=== PATIENT | male | born 1980 | race Two or more races ===

== ENCOUNTER 2021-11-01 06:08 | Inpatient (IN) | payer MEDICAID ==
[~2021-11-01] VITALS: Ht 182.9 cm; Wt 115.0 kg
[2021-11-01 06:44] LABS: EOSINOPHILS % (AUTO) 0.4 % (1.0-6.0); HEMATOCRIT 43.7 % (41-53); HEMOGLOBIN 14.9 g/dL (13.5-17.5); LYMPHOCYTES # (AUTO) 0.9 K/uL (1.0-4.8); LYMPHOCYTES % (AUTO) 17.8 % (22.0-44.0); MEAN CORPUSCULAR HEMOGLOBIN 31.1 pg (26.0-34.0); MEAN CORPUSCULAR HGB CONC 34.2 G/dL (31.0-37.0); MEAN CORPUSCULAR VOLUME 91 fL (80-100); MONOCYTES # (AUTO) 0.5 K/uL (0.1-1.0); NEUTROPHILS # (AUTO) 3.5 K/uL (1.8-7.7); NEUTROPHILS % (AUTO) 70.8 % (40.0-70.0); PLATELET COUNT (AUTO) 344 K/uL (150-450); RED BLOOD CELL COUNT(AUTO) 4.79 MIL/uL (4.50-5.90); RED CELL DISTRIBUTION WIDTH 13.2 % (11.5-14.5)
[2021-11-01 06:53] LABS: ANION GAP 11 mmol/L (8-16); CALCIUM, TOTAL 9.1 mg/dL (8.8-10.5); CARBON DIOXIDE 21 mmol/L (22-29); CHLORIDE 98 mmol/L (98-107); CREATININE 0.88 mg/dL (0.60-1.30); GLOMERULAR FILTR. RATE CALC > 60 mL/min (>60); GLUCOSE,RANDOM 104 mg/dL (70-110); SODIUM SERUM 130 mmol/L (136-145); UREA NITROGEN, BLOOD 10 mg/dL (7-18)
[2021-11-01 07:04] LABS: D-DIMER 1.7 mg/L FEU (0.00-0.50); INR 1.1 (0.9-1.1)
[2021-11-01 07:55] LABS: ALANINE AMINOTRANSFERASE 179 U/L (12-78); ALBUMIN 2.8 g/dL (3.4-5.0); ALKALINE PHOSPHATASE 67 U/L (46-116); ASPARTATE AMINOTRANSFERASE 159 U/L (15-37); BILIRUBIN,TOTAL 0.8 mg/dL (0.1-1.0); CREATINE KINASE, TOTAL ONLY 329 U/L (39-308); LACTATE DEHYDROGENASE 538 U/L (85-227); PHOSPHORUS 3.6 mg/dL (2.5-4.9); TOTAL PROTEIN, SERUM 8.2 g/dL (6.4-8.2)
[2021-11-01 09:14] LABS: FERRITIN 2443 ng/mL (26-388)
[2021-11-01 09:27] LABS: COVID AG,FIA SOURCE NASOPHARYNGEAL
[2021-11-01] MEDS ORDERED: ACETAMINOPHEN 325 MG TABLET PO PRN ×2 (09:45→14:15)
[2021-11-01] MEDS ORDERED: ONDANSETRON HCL 4 MG/2 ML VIAL IVP PRN ×2 (09:45→14:15)
[2021-11-01 11:10] LABS: ERYTHROCYTE SEDIMENTATION RATE 72 MM/HR (0-15)
[2021-11-01] MEDS ORDERED: MAGNESIUM HYDROXIDE SUSPENSION 30 ML UDCUP PO PRN (14:15)
[2021-11-01] MEDS ORDERED: BISACODYL 10 MG RECTAL RECTAL SUPPOSITORY PR PRN (14:15)
[2021-11-01] MEDS ORDERED: HYDROCODONE/ACETAMINOPHEN 5-325 MG TABLET PO PRN (14:15)
[2021-11-01] MEDS ORDERED: DEXAMETHASONE SOD PHOS 4 MG/ML VIAL IVP ONE (14:15)
[2021-11-01] MEDS ORDERED: ZOLPIDEM TARTRATE 5 MG TABLET PO PRN (14:15)
[2021-11-01] MEDS ORDERED: MORPHINE SULFATE 2 MG/ML SYRINGE IVP PRN (14:15)
[2021-11-01] MEDS ORDERED: REMDESIVIR 200 MG in SODIUM CHLORIDE 0.9% 250 ML IV ONE (14:15)
[2021-11-01] MEDS: CefTRIAXone 1 GM/DEXTROSE 50 ML IV SCH (15:21)
[2021-11-01] MEDS: AZITHROMYCIN 500 MG/NS 250 ML IV SCH (16:00)
[2021-11-01 17:38] LABS: C-REACTIVE PROTEIN QUANT 12.06 mg/dL (0.00-0.30)
[2021-11-02 01:59] VITALS: BP 123/84
[2021-11-02] MEDS ORDERED: INFLUENZA VIRUS VACCINE QVS 2021-22 (6MO+)/PF 60 MCG/0.5 ML SYRINGE IM. ONE (02:30)
[2021-11-02 04:37] VITALS: BP 118/78
[2021-11-02 08:05] VITALS: BP 121/80
[2021-11-02 08:31] LABS: ALANINE AMINOTRANSFERASE 186 U/L (12-78); ALBUMIN 2.7 g/dL (3.4-5.0); ALKALINE PHOSPHATASE 69 U/L (46-116); ANION GAP 13 mmol/L (8-16); ASPARTATE AMINOTRANSFERASE 138 U/L (15-37); BILIRUBIN,TOTAL 0.6 mg/dL (0.1-1.0); C-REACTIVE PROTEIN QUANT 7.19 mg/dL (0.00-0.30); CALCIUM, TOTAL 9.4 mg/dL (8.8-10.5); CARBON DIOXIDE 22 mmol/L (22-29); CHLORIDE 104 mmol/L (98-107); CREATININE 0.84 mg/dL (0.60-1.30); FERRITIN 2498 ng/mL (26-388); GLOMERULAR FILTR. RATE CALC > 60 mL/min (>60); GLUCOSE,RANDOM 92 mg/dL (70-110); POTASSIUM 4.6 mmol/L (3.5-5.1); SODIUM SERUM 139 mmol/L (136-145); TOTAL PROTEIN, SERUM 8.3 g/dL (6.4-8.2); UREA NITROGEN, BLOOD 16 mg/dL (7-18)
[2021-11-02] MEDS: PANTOPRAZOLE SODIUM 40 MG/VIAL IVP SCH (09:26)
[2021-11-02] MEDS: HEPARIN SODIUM,PORCINE 5,000 UNITS/ML VIAL SQ SCH ×4 (09:26→23:38)
[2021-11-02] MEDS: DEXAMETHASONE SOD PHOS 4 MG/ML VIAL IVP SCH (09:26)
[2021-11-02 11:56] VITALS: BP 138/84
[2021-11-02] MEDS: CefTRIAXone 1 GM/DEXTROSE 50 ML IV SCH (14:48)
[2021-11-02 15:31] VITALS: BP 123/70
[2021-11-02] MEDS: AZITHROMYCIN 500 MG/NS 250 ML IV SCH (16:10)
[2021-11-02] MEDS: REMDESIVIR 100 MG in SODIUM CHLORIDE 0.9% 250 ML IV SCH (17:50)
[2021-11-02 19:48] VITALS: BP 106/70
[2021-11-03] VITALS (7 sets, daily range): BP systolic 115–134; BP diastolic 57–82
[2021-11-03 07:05] LABS: ALANINE AMINOTRANSFERASE 208 U/L (12-78); ALBUMIN 2.7 g/dL (3.4-5.0); ALKALINE PHOSPHATASE 67 U/L (46-116); ANION GAP 10 mmol/L (8-16); ASPARTATE AMINOTRANSFERASE 138 U/L (15-37); BILIRUBIN,TOTAL 0.5 mg/dL (0.1-1.0); CALCIUM, TOTAL 8.9 mg/dL (8.8-10.5); CARBON DIOXIDE 25 mmol/L (22-29); CHLORIDE 104 mmol/L (98-107); CREATININE 0.88 mg/dL (0.60-1.30); GLOMERULAR FILTR. RATE CALC > 60 mL/min (>60); GLUCOSE,RANDOM 85 mg/dL (70-110); SODIUM SERUM 139 mmol/L (136-145); TOTAL PROTEIN, SERUM 7.4 g/dL (6.4-8.2); UREA NITROGEN, BLOOD 17 mg/dL (7-18)
[2021-11-03] MEDS: HEPARIN SODIUM,PORCINE 5,000 UNITS/ML VIAL SQ SCH ×3 (08:34→23:08)
[2021-11-03] MEDS: PANTOPRAZOLE SODIUM 40 MG/VIAL IVP SCH (08:35)
[2021-11-03] MEDS: DEXAMETHASONE SOD PHOS 4 MG/ML VIAL IVP SCH (08:36)
[2021-11-03] MEDS ORDERED: TOCILIZUMAB 800 MG in SODIUM CHLORIDE 0.9% 60 ML IV ONE (14:30)
[2021-11-03] MEDS: CefTRIAXone 1 GM/DEXTROSE 50 ML IV SCH (14:44)
[2021-11-03] MEDS: AZITHROMYCIN 500 MG/NS 250 ML IV SCH (15:26)
[2021-11-03] MEDS: REMDESIVIR 100 MG in SODIUM CHLORIDE 0.9% 250 ML IV SCH (18:09)
[2021-11-04 03:35] VITALS: BP 120/67
[2021-11-04 07:01] VITALS: BP 111/66
[2021-11-04 07:47] LABS: ALANINE AMINOTRANSFERASE 223 U/L (12-78); ALBUMIN 2.7 g/dL (3.4-5.0); ALKALINE PHOSPHATASE 69 U/L (46-116); ANION GAP 7 mmol/L (8-16); ASPARTATE AMINOTRANSFERASE 131 U/L (15-37); BILIRUBIN,TOTAL 0.5 mg/dL (0.1-1.0); C-REACTIVE PROTEIN QUANT 2.02 mg/dL (0.00-0.30); CARBON DIOXIDE 28 mmol/L (22-29); CHLORIDE 104 mmol/L (98-107); CREATININE 0.95 mg/dL (0.60-1.30); FERRITIN 1821 ng/mL (26-388); GLOMERULAR FILTR. RATE CALC > 60 mL/min (>60); GLUCOSE,RANDOM 82 mg/dL (70-110); LACTATE DEHYDROGENASE 434 U/L (85-227); POTASSIUM 4.6 mmol/L (3.5-5.1); SODIUM SERUM 139 mmol/L (136-145); TOTAL PROTEIN, SERUM 7.7 g/dL (6.4-8.2); UREA NITROGEN, BLOOD 17 mg/dL (7-18)
[2021-11-04] MEDS: PANTOPRAZOLE SODIUM 40 MG/VIAL IVP SCH (09:03)
[2021-11-04] MEDS: DEXAMETHASONE SOD PHOS 4 MG/ML VIAL IVP SCH (09:03)
[2021-11-04] MEDS: HEPARIN SODIUM,PORCINE 5,000 UNITS/ML VIAL SQ SCH ×3 (09:03→23:50)
[2021-11-04 11:03] VITALS: BP 101/55
[2021-11-04 14:32] VITALS: BP 115/91
[2021-11-04] MEDS: CefTRIAXone 1 GM/DEXTROSE 50 ML IV SCH (15:39)
[2021-11-04] MEDS: AZITHROMYCIN 500 MG/NS 250 ML IV SCH (17:08)
[2021-11-04] MEDS: REMDESIVIR 100 MG in SODIUM CHLORIDE 0.9% 250 ML IV SCH (18:04)
[2021-11-04 20:03] VITALS: BP 135/99
[2021-11-04 23:40] VITALS: BP 115/73
[2021-11-05 04:00] VITALS: BP 113/71
[2021-11-05 07:19] VITALS: BP 136/83
[2021-11-05 08:10] LABS: ALANINE AMINOTRANSFERASE 260 U/L (12-78); ALBUMIN 2.8 g/dL (3.4-5.0); ALKALINE PHOSPHATASE 66 U/L (46-116); ANION GAP 3 mmol/L (8-16); ASPARTATE AMINOTRANSFERASE 125 U/L (15-37); BILIRUBIN,TOTAL 0.4 mg/dL (0.1-1.0); C-REACTIVE PROTEIN QUANT 1.07 mg/dL (0.00-0.30); CALCIUM, TOTAL 9.1 mg/dL (8.8-10.5); CARBON DIOXIDE 29 mmol/L (22-29); CHLORIDE 104 mmol/L (98-107); FERRITIN 1589 ng/mL (26-388); GLOMERULAR FILTR. RATE CALC > 60 mL/min (>60); GLUCOSE,RANDOM 87 mg/dL (70-110); POTASSIUM 4.3 mmol/L (3.5-5.1); SODIUM SERUM 136 mmol/L (136-145); TOTAL PROTEIN, SERUM 7.4 g/dL (6.4-8.2); UREA NITROGEN, BLOOD 17 mg/dL (7-18)
[2021-11-05] MEDS: HEPARIN SODIUM,PORCINE 5,000 UNITS/ML VIAL SQ SCH ×3 (09:17→23:41)
[2021-11-05] MEDS: PANTOPRAZOLE SODIUM 40 MG/VIAL IVP SCH (09:18)
[2021-11-05] MEDS: DEXAMETHASONE SOD PHOS 4 MG/ML VIAL IVP SCH (09:18)
[2021-11-05 10:55] VITALS: BP 144/93
[2021-11-05] MEDS: CefTRIAXone 1 GM/DEXTROSE 50 ML IV SCH (15:12)
[2021-11-05 16:15] VITALS: BP 134/86
[2021-11-05] MEDS: AZITHROMYCIN 500 MG/NS 250 ML IV SCH (16:56)
[2021-11-05] MEDS: REMDESIVIR 100 MG in SODIUM CHLORIDE 0.9% 250 ML IV SCH (18:51)
[2021-11-05 21:30] VITALS: BP 125/78
[2021-11-06 01:14] VITALS: BP 116/79
[2021-11-06 05:37] VITALS: BP 123/75
[2021-11-06 07:43] LABS: ALANINE AMINOTRANSFERASE 235 U/L (12-78); ALBUMIN 2.9 g/dL (3.4-5.0); ALKALINE PHOSPHATASE 65 U/L (46-116); ANION GAP 1 mmol/L (8-16); ASPARTATE AMINOTRANSFERASE 88 U/L (15-37); BILIRUBIN,TOTAL 0.5 mg/dL (0.1-1.0); C-REACTIVE PROTEIN QUANT 0.56 mg/dL (0.00-0.30); CALCIUM, TOTAL 9.1 mg/dL (8.8-10.5); CARBON DIOXIDE 29 mmol/L (22-29); CHLORIDE 104 mmol/L (98-107); CREATININE 0.96 mg/dL (0.60-1.30); FERRITIN 1351 ng/mL (26-388); GLOMERULAR FILTR. RATE CALC > 60 mL/min (>60); GLUCOSE,RANDOM 93 mg/dL (70-110); POTASSIUM 4.3 mmol/L (3.5-5.1); SODIUM SERUM 134 mmol/L (136-145); TOTAL PROTEIN, SERUM 7.3 g/dL (6.4-8.2); UREA NITROGEN, BLOOD 14 mg/dL (7-18)
[2021-11-06 08:01] VITALS: BP 137/65
[2021-11-06] MEDS: HEPARIN SODIUM,PORCINE 5,000 UNITS/ML VIAL SQ SCH ×3 (09:06→23:44)
[2021-11-06] MEDS: DEXAMETHASONE SOD PHOS 4 MG/ML VIAL IVP SCH (09:07)
[2021-11-06] MEDS: PANTOPRAZOLE SODIUM 40 MG/VIAL IVP SCH (09:08)
[2021-11-06 10:47] VITALS: BP 156/74
[2021-11-06] MEDS: CefTRIAXone 1 GM/DEXTROSE 50 ML IV SCH (15:23)
[2021-11-06] MEDS: AZITHROMYCIN 500 MG/NS 250 ML IV SCH (16:10)
[2021-11-06 16:27] VITALS: BP 124/77
[2021-11-06 20:41] VITALS: BP 130/77
[2021-11-07 00:36] VITALS: BP 133/77
[2021-11-07 05:27] VITALS: BP 134/84
[2021-11-07 08:10] VITALS: BP 134/84
[2021-11-07] MEDS: PANTOPRAZOLE SODIUM 40 MG/VIAL IVP SCH (08:59)
[2021-11-07] MEDS: DEXAMETHASONE SOD PHOS 4 MG/ML VIAL IVP SCH (09:00)
[2021-11-07] MEDS: HEPARIN SODIUM,PORCINE 5,000 UNITS/ML VIAL SQ SCH (09:02)
[2021-11-07 12:17] VITALS: BP 115/70
== END 2021-11-07 15:30 | disposition home or self-care (01) | DRG 137 ==
LOC: EMS 06:14 → 5N 18:20
PROVIDERS: ADMIT Hospitalist; ATTEND Hospitalist
PROC: 5A0935A Assistance with Respiratory Ventilation, Less than 24 Consecutive Hours, High Flow/Velocity Cannula (ICD-10-PCS; principal; 2021-11-01)
PROC: XW033E5 Introduction of Remdesivir Anti-infective into Peripheral Vein, Percutaneous Approach, New Technology Group 5 (ICD-10-PCS; 2021-11-01)
PROC: 5A0935A Assistance with Respiratory Ventilation, Less than 24 Consecutive Hours, High Flow/Velocity Cannula (ICD-10-PCS; 2021-11-02)
PROC: 5A0935A Assistance with Respiratory Ventilation, Less than 24 Consecutive Hours, High Flow/Velocity Cannula (ICD-10-PCS; 2021-11-03)
PROC: XW033H5 Introduction of Tocilizumab into Peripheral Vein, Percutaneous Approach, New Technology Group 5 (ICD-10-PCS; 2021-11-03)
PROC: 5A0935A Assistance with Respiratory Ventilation, Less than 24 Consecutive Hours, High Flow/Velocity Cannula (ICD-10-PCS; 2021-11-04)
PROC: 5A0935A Assistance with Respiratory Ventilation, Less than 24 Consecutive Hours, High Flow/Velocity Cannula (ICD-10-PCS; 2021-11-05)
DX: U07.1 COVID-19 (principal); J96.01 Acute respiratory failure with hypoxia; J12.82 Pneumonia due to coronavirus disease 2019; E43 Unspecified severe protein-calorie malnutrition; D68.59 Other primary thrombophilia; E87.1 Hypo-osmolality and hyponatremia; E66.9 Obesity, unspecified; D72.810 Lymphocytopenia; Z68.37 Body mass index [BMI] 37.0-37.9, adult
CPT/HCPCS: 71045; 80053; 82550; 82728; 83615; 83735; 84100; 84145; 84484; 85025; 85379; 85610; 85651; 85730; 86140; 87040; 93005; 99291; C9113; J0456; J0696; J1100; J1644; J7050; Q9967; 36415-L1; 36415-TC; U0003